=== PATIENT | female | born 1945 | race Caucasian/White ===

== ENCOUNTER → 2017-04-29 | Outpatient (CLI) | payer MEDICARE ==
--- NOTE | 2017-04-29 13:29 | KCIC ---
MRI Lumbar Spine without contrast History: Low back pain, lifting injury 2 weeks ago, right leg numbness Technique: Multiplanar, multi sequential noncontrast MR imaging was performed of the lumbar spine. Contrast: None Comparison: None Findings: Lumbar vertebral body stature is maintained. AP alignment is adequate. Conus terminates at L1-2. There is fvgb-hs-gojjpqob degenerative disc disease at L2-3, minimally at L3-4 and L4-5, mild disc desiccation L1-2 and L5-S1. 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 There is mild lumbar levoscoliosis. There is no significant marrow edema. There is cholelithiasis. Small T2 hyperintense foci of the visualized bilateral kidneys are most likely cysts. L1-L2: Spinal canal and neural foramina are adequate. L2-L3: There is broad posterior bulge. There is mild indentation upon the ventral thecal sac without significant spinal stenosis. Neural foramina are adequate. L3-L4: There is mild facet hypertrophic change. There is anterior annular tear. Spinal canal is overall adequate. Neural foramina are adequate. L4-L5: There is broad posterior bulge, superimposed protrusion eccentric to the inferior left neural foramen and proximal left extraforaminal region. There is moderate to severe narrowing of the left neural foramen, contact undersurface exiting left L4 nerve root in the neural foramen and proximal extraforaminal region. There is mild inferior narrowing of the right neural foramen. There is mild narrowing of the far left lateral recess. There is mild buckling of the ligamentum flavum. L5-S1: There is moderate facet hypertrophic change. Spinal canal and neural foramina are adequate. Impression: 1. There is no significant lumbar spinal stenosis, mild narrowing of the far left lateral recess at L4-5 by bulge/protrusion. 2. There is moderate to severe narrowing of the left L4-5 neural foramen in part by protrusion, contact undersurface exiting left L4 nerve root in the neural foramen and proximal extraforaminal region. There is mild narrowing of the inferior right L4-5 neural foramen. 3. There is degenerative disc disease greatest at L2-3. 4. There is cholelithiasis. Electronically signed by: Bravo Hennessy MD (04/29/2017 1:26 PM) [facility]
== END | disposition home or self-care (01) ==
LOC: KCIC MRI 12:05
PROVIDERS: ATTEND Nurse Practitioner Adult Health
DX: M51.26 Other intervertebral disc displacement, lumbar region (principal); K80.20 Calculus of gallbladder without cholecystitis without obstruction
CPT/HCPCS: 72148

== ENCOUNTER 2018-03-31 13:23 | Inpatient (IN) | payer MEDICARE ==
[~2018-03-31] VITALS: Ht 172.7 cm; Wt 80.5 kg
[2018-03-31] VITALS (7 sets, daily range): BP systolic 156–234; BP diastolic 50–82
[2018-03-31] MEDS ORDERED: hydrALAZINE 20 MG/ML VIAL. IVP ONE (16:15)
[2018-03-31] MEDS: LISINOPRIL 20 MG TABLET PO SCH (16:30)
--- NOTE | 2018-03-31 16:42 | PDOC2 ---
JAYANT SLAUGHTER SPECIFICATION MANAGER 03/31/18 1641: CARDIAC CONSULT DATE OF CONSULT Date of Consult DATE: 03/31/18 TIME: 16:13 REASON FOR CONSULT Reason for Consult: Bradycardia REFERRING PHYSICIAN Referring Physician: Darren SOURCE Source: Chart review, Patient HISTORY OF PRESENT ILLNESS HISTORY OF PRESENT ILLNESS This is a pleasant 72 yo female admitted for complains of SOA and bradycardia. reports hta in the last several months she has been having intermittent HAs but no associated visual or auditory disturbances nor frequent dizziness or passing out. No recent falls or injury. In the last 3 weeks she has been having MUNGUIA and progressed to just going to the bathroom with SOA. In the last week she also has been having chest heaviness that is nonradiating and no nausea or diaphoresis nor sensation of palpitations. In the last 3 days she has noticed increasing leg swelling. She only takes advil PM. Denies any CAD, VTE, arrhythmias, HTN, HLP, DM2. She went to Dr. Bautista office, her PCP per her daughters convincing and was told to go to the hospital where she was confirmed with HR in the 30s with high BP. She was then transferred to [facility] for further treatment and evaluation. PAST MEDICAL HISTORY Hepatobiliary: Cholelithiasis Musculoskeletal: Osteoarthritis, Other (lumbar stenosis) PAST SURGICAL HISTORY Past Surgical History: No pertinent history FAMILY HISTORY Family History: Other (cerebral hemorrhage father in his 40s. ) SOCIAL HISTORY Smoke: 1 pack per day (>50 yrs) ALCOHOL: none Drugs: None Lives: with Family (daughter) ALLERGIES ALLERGIES: Coded Allergies: No Known Drug Allergies (Unverified , 03/31/18) ROS Review of System 14 point ROS evaluated with pertinent positives noted per HPI PHYSICAL EXAM General: Alert, Oriented X3, Cooperative, No acute distress HEENT: Atraumatic, Mucous membr. moist/pink Lungs: Other (basilar crackles) Heart: Regular rate (SB40s), Normal S1, Normal S2, Other (diffuse systolic murmur loudest to LLS border) Abdomen: Soft, Other (truncal obesity) Extremities: No cyanosis, Other (2+ bilateral LE pitting edema) Skin: No breakdown, No significant lesion Neuro: Normal speech, Sensation intact Psych/Mental Status: Mental status NL, Mood NL MUSCULOSKELETAL: Osteoarthritic changes both hands IMAGES IMAGES Impression: MRI 1. There is no significant lumbar spinal stenosis, mild narrowing of the far left lateral recess at L4-5 by bulge/protrusion. 2. There is moderate to severe narrowing of the left L4-5 neural foramen in part by protrusion, contact undersurface exiting left L4 nerve root in the neural foramen and proximal extraforaminal region. There is mild narrowing of the inferior right L4-5 neural foramen. 3. There is degenerative disc disease greatest at L2-3. 4. There is cholelithiasis. Electronically signed by: Noel Madden MD (04/29/2017 1:26 PM) [id number] DICTATED and SIGNED BY: NOEL MADDEN MD DATE: 04/29/17 1320 ASSESSMENT/PLAN ASSESSMENT/PLAN 1. Asymptomatic SB: Lowest in 30s.NO pauses nor presyncopal/syncopal events prehospital. No meds noted that would induce SB. 2. Accelerated HTN: likely chronic and possibly induced by bradycardia 3. Mild acute CHF with possible diastolic dysfunction 4. Likely COPD with 50 pk yr : per PCP 5. Leg swelling/MUNGUIA: positive DDIMER. 6. HAs: possibly from HTN. nevertheless further imaging needed with father of cerebral hemorrhage at 48 7. CP: possibly from HTN. initial trop nml. EKG SR without acute changes. Poor R wave progression. Recommendations 1. Pacer pads in place and on standby 2. Hydralazine IV x1. Start on lisinopril and hydralazine PO. ASA once head CT is noted. 3. Trend troponin, Mg, UA, TSH. TTE, lipid panel. 4. CTA chest 5. Will consider for ischemic workup pending clinical course. 6. Smoking cessation MARIANNE GUZMAN MD 04/01/18 1131: CARDIAC CONSULT ASSESSMENT/PLAN ASSESSMENT/PLAN Patient seen and examined 04/01/18. Agree with LOAD TESTER's assessment and plan. Severe sinus bradycardia most probably secondary to sick sinus syndrome. She is not on any rate lowering medications. Monitor telemetry closely for pauses and consider permanent pacemaker implantation if heart rate does not improve Titrate oral antihypertensives for better control of accelerated hypertension Mild acute on chronic diastolic heart failure probably precipitated by uncontrolled hypertension Check 2-D echo to assess LV systolic function Slight troponin elevation probably demand ischemia We will consider Lexiscan nuclear stress test to rule out ischemia Thank you for your consultation JAYANT SLAUGHTER APRN Mar 31, 2018 16:41 MARIANNE GUZMAN MD Apr 01, 2018 11:31
[2018-03-31] MEDS ORDERED: CONTRAST GIVEN. MC PRN (16:45)
[2018-03-31] MEDS ORDERED: IOHEXOL 300 MG/ML 100ML VIAL. IV ONE (16:45)
[2018-03-31] MEDS ORDERED: ONDANSETRON PF 4 MG/2 ML VIAL. IV ONE (17:00)
--- NOTE | 2018-03-31 17:02 | RAD ---
Examination: CT angiography chest HISTORY: History of dyspnea COMPARISON: None available TECHNIQUE: Axial CT angiographic images of chest were performed with IV contrast. Coronal and sagittal 3-D MIP reformats are performed Exposure: One or more of the following individualized dose reduction techniques were utilized for this examination: 1. Automated exposure control 2. Adjustment of the mA and/or kV according to patient size 3. Use of iterative reconstruction technique FINDINGS: Examination is very limited due to significant motion artifact. Mild cardiomegaly. Caliber of the aorta grossly appears unremarkable. There is no evidence of filling defect identified in the main pulmonary arterial trunk and right and left main pulmonary arteries. The evaluation of the distal lobar, segmental branches of the pulmonary arteries is limited on this examination due to significant motion artifact. Small right pleural effusion identified. Mild right lung base airspace opacities likely atelectasis or infiltrates. There is a 6 mm nodule identified in the right upper lobe of the lung. Small focus of linear airspace opacity identified in the right upper lobe of the lung abutting the fissure likely atelectasis or infiltrate. The visualized liver, spleen, grossly appears unremarkable Mild degenerative changes thoracic spine. IMPRESSION: 1. No evidence of central pulmonary embolism.The evaluation the distal lobar, segmental branches of the pulmonary arteries is limited due to significant motion artifact. 2. Mild right lung base and right upper lobe airspace opacities likely atelectasis or infiltrates. Small right pleural effusion. 3. 6 mm nodule identified in the right upper lobe of the lung. Follow-up per Fleischner Society guidelines with a follow-up CT in 6-12 months. Electronically signed by: Jovanni Morrison MD (03/31/2018 4:59 PM) [id number]
--- NOTE | 2018-03-31 17:02 | RAD ---
CT HEAD WO CONTRAST Clinical indications: SEVERE HEADACHE COMPARISON: None available. Technique: Noncontrast axial cross sectional scanning of the head was performed. PQRS compliance Statement One or more of the following individualized dose reduction techniques were utilized for this study: 1. Automated exposure control 2. Adjustment of the mA and/or kV according to patient size 3. Use of iterative reconstruction technique Findings: No acute intracranial hemorrhage or midline shift or mass-effect or hydrocephalus or extra-axial fluid collection is seen. No focal hypodense area or sulci effacement is seen to indicate an acute infarct or edema radiographically. No skull fracture or pneumocephalus is seen. No opacification of the mastoid sinuses or the paranasal sinuses is seen. The maxillary sinuses are not completely seen in this study. Impression: No acute intracranial abnormality is seen. Electronically signed by: Edwar Zurita MD (03/31/2018 4:59 PM) [facility]
[2018-03-31 18:02] LABS: BILIRUBIN,URINE NEGATIVE (NEG); CLARITY,URINE CLEAR; COLOR,URINE YELLOW; NITRITE,URINE NEGATIVE (NEG); PROTEIN,URINE 30 mg/dL (NEG-TRACE)
[2018-03-31 18:27] LABS: BACTERIA,URINE FEW /HPF (0-FEW); RBC,URINE 0 /HPF (0-2); SQUAMOUS EPITHELIAL CELL,UR FEW /LPF; WBC,URINE OCC /HPF (0-4)
[2018-03-31 19:15] LABS: CHOLESTEROL/HDL RATIO 4.4; MAGNESIUM 1.9 mg/dL (1.8-2.4)
[2018-04-01] VITALS (7 sets, daily range): BP systolic 125–195; BP diastolic 53–67
[2018-04-01] MEDS ORDERED: IBUPROFEN 200 MG TABLET. PO PRN
[2018-04-01] MEDS: IBUPROFEN 600 MG TABLET. PO PRN ×3 (00:08→21:11)
--- NOTE | 2018-04-01 06:54 | RAD ---
CLINICAL HISTORY: BILATERAL LOWER EXTREMITY EDEMA. COMPARISON: None available. TECHNIQUE: Ultrasound evaluation of the both legs was performed from the groin to the upper calf with mac scale, spectral and color doppler evaluation. FINDINGS: Technical limitations due to to patient motion. The common femoral vein, and femoral vein, including the saphenous-femoral junction are normal in appearance. Color and spectral Doppler evaluation demonstrates normal spontaneous flow, augmentation and phasicity. The popliteal vein and visualized calf veins also demonstrate normal compressibility and flow. IMPRESSION: No evidence for bilateral lower extremity DVT Electronically signed by: Todd Dacosta MD (04/01/2018 6:50 AM) [facility] [id number]
[2018-04-01] MEDS: LISINOPRIL 20 MG TABLET PO SCH (07:46)
[2018-04-01] MEDS: ASPIRIN ENTERIC COATED 81 MG TABLET.DR. PO SCH (07:53)
--- NOTE | 2018-04-01 07:53 | EKG ---
[facility] [address] [place] [address] Test Date: 2018-04-01 Test Time: 07:45:12 Pat Name: DANY ROD Department: Room: 205 1 Gender: F Rayon Winder: : 1945 Requested By: JAYANT SLAUGHTER Order Number: [id number] Reading MD: Chaparro Arriola MD Measurements Intervals [place] Rate: 38 P: 28 NM: 210 QRS: 26 QRSD: 98 T: 31 QT: 522 QTc: 418 Interpretive Statements SINUS RHYTHM WITH 2:1 AV BLOCK Electronically Signed On 04-02-2018 10:42:40 CDT by Chaparro Arriola MD
[2018-04-01 08:19] LABS: HEMATOCRIT 38.1 % (36.0-47.0); HEMOGLOBIN 12.9 g/dL (12.0-15.5); RED BLOOD COUNT 4.23 x10^6/uL (3.50-5.40); RED CELL DISTRIBUTION WIDTH 13.9 % (11.5-14.5); WHITE BLOOD COUNT 8.5 x10^3/uL (4.0-11.0)
[2018-04-01 08:29] LABS: ALBUMIN 3.1 g/dL (3.4-5.0); ALBUMIN/GLOBULIN RATIO 1.1 (1.0-1.7); CALCIUM 9.8 mg/dL (8.5-10.1); CREATININE 0.9 mg/dL (0.6-1.0); GFR 61.5; MAGNESIUM 1.9 mg/dL (1.8-2.4); POTASSIUM 4.2 mmol/L (3.5-5.1); TOTAL BILIRUBIN 0.8 mg/dL (0.2-1.0); TOTAL PROTEIN 5.9 g/dL (6.4-8.2)
--- NOTE | 2018-04-01 09:20 | PDOC ---
JAYANT SLAUGHTER OUTDOOR PURSUITS INSTRUCTOR 04/01/18 0920: CARDIO Progress Notes Date and Time Date of Service 03/31/2018 Time of Evaluation 0900 Subjective Subjective: No Chest Pain, No shortness of breath, No Palpitations Vitals Vitals Vital Signs Date Time Temp Pulse Resp B/P (MAP) Pulse Ox O2 Delivery O2 Flow Rate FiO2 04/01/18 07:51 38 195/67 04/01/18 07:25 16 94 Room Air 04/01/18 03:41 98.4 98.4 03/31/18 18:44 2.0 Weight Weight [ ] Input and Output Intake and Output Intake and Output 04/01/18 07:00 Intake Total 0 ml Output Total 525 ml Balance -525 ml Intake Oral 0 ml Output Urine Total 525 ml Laboratory Labs Laboratory Tests Test 03/31/18 17:15 03/31/18 18:40 04/01/18 01:10 04/01/18 05:45 Urine Collection Type Unknown Urine Color Yellow Urine Clarity Clear Urine pH 6.0 Urine Specific [place] 1.020 Urine Protein 30 mg/dL (NEG-TRACE) Urine Glucose (UA) Negative mg/dL (NEG) Urine Ketones (Stick) Trace mg/dL (NEG) Urine Blood Negative (NEG) Urine Nitrite Negative (NEG) Urine Bilirubin Negative (NEG) Urine Urobilinogen Dipstick 1.0 mg/dL (0.2 mg/dL) Urine Leukocyte Esterase Negative (NEG) Urine RBC 0 /HPF (0-2) Urine WBC Occ /HPF (0-4) Urine Squamous Epithelial Cells Few /LPF Urine Bacteria Few /HPF (0-FEW) Urine Mucus Slight /LPF Magnesium Level 1.9 mg/dL (1.8-2.4) 1.9 mg/dL (1.8-2.4) Troponin I Quantitative 0.021 ng/mL (0.000-0.055) 0.109 ng/mL (0.000-0.055) 0.112 ng/mL (0.000-0.055) Triglycerides Level 83 mg/dL (0-150) Cholesterol Level 184 mg/dL (0-200) LDL Cholesterol, Calculated 125 mg/dL (0-100) VLDL Cholesterol, Calculated 17 mg/dL (0-40) Non-HDL Cholesterol Calculated 142 mg/dL (0-129) HDL Cholesterol 42 mg/dL (40-60) Cholesterol/HDL Ratio 4.4 Thyroid Stimulating Hormone (TSH) 2.060 uIU/mL (0.358-3.74) White Blood Count 8.5 x10^3/uL (4.0-11.0) Red Blood Count 4.23 x10^6/uL (3.50-5.40) Hemoglobin 12.9 g/dL (12.0-15.5) Hematocrit 38.1 % (36.0-47.0) Mean Corpuscular Volume 90 fL (79-100) Mean Corpuscular Hemoglobin 31 pg (25-35) Mean Corpuscular Hemoglobin Concent 34 g/dL (31-37) Red Cell Distribution Width 13.9 % (11.5-14.5) Platelet Count 181 x10^3/uL (140-400) Sodium Level 142 mmol/L (136-145) Potassium Level 4.2 mmol/L (3.5-5.1) Chloride Level 107 mmol/L (98-107) Carbon Dioxide Level 22 mmol/L (21-32) Anion Gap 13 (6-14) Blood Urea Nitrogen 20 mg/dL (7-20) Creatinine 0.9 mg/dL (0.6-1.0) Estimated GFR (Cockcroft-Gault) 61.5 BUN/Creatinine Ratio 22 (6-20) Glucose Level 85 mg/dL (70-99) Calcium Level 9.8 mg/dL (8.5-10.1) Total Bilirubin 0.8 mg/dL (0.2-1.0) Aspartate Amino Transf (AST/SGOT) 16 U/L (15-37) Alanine Aminotransferase (ALT/SGPT) 32 U/L (14-59) Alkaline Phosphatase 86 U/L (46-116) Total Protein 5.9 g/dL (6.4-8.2) Albumin 3.1 g/dL (3.4-5.0) Albumin/Globulin Ratio 1.1 (1.0-1.7) Physical Exam HEENT: Neck Supple W Full Motion Chest: Symmetric LUNGS: Clear to Auscultation Heart: S1S2, RRR (second degree type 2 HR 40s) Extremities: No Calf Tenderness, Other (1-2+ bilateral LE pitting edema) Neurology: alert, oriented, follow commands Assessment Assessment 1. SSS: overnight with second degree type 2 mobitz. 8 sec pause this am. 2. Accelerated HTN: likely chronic and possibly induced by bradycardia 3. Mild acute CHF with possible diastolic dysfunction: compensated 4. Suspect COPD with 50 pk yr : per PCP. CTA negative for PE 5. HAs: likely from HTN, CT head negative. 7. CP: possibly from HTN 8. Mildly elevated troponin: peaked at 0.1 suspect from SSS and HTN. currently CP.free 9. HLP Recommendations 1. Pacer pads in place and on standby PPM today, risks and benefits explained and agreeable to proceed 2. ASA, statin. hydralazine, lisinopril. BMP and Mg this AM. 3. MPI prior to DC. TTE pending. 4. Will reevaluate BP meds post pacer placement 5. Smoking cessation MARIANNE GUZMAN MD 04/01/18 1642: CARDIO Progress Notes Assessment Assessment Patient seen and examined. Agree with COPY CENTER SPECIALIST's assessment and plan. Telemetry with severe bradycardia, complete heart block and 8 second pause noted We will proceed with permanent pacemaker implantation Risks and benefits were explained and she is agreeable JAYANT SLAUGHTER APRN Apr 01, 2018 09:20 MARIANNE GUZMAN MD Apr 01, 2018 16:42
[2018-04-01] MEDS: ONDANSETRON PF 4 MG/2 ML VIAL. IV PRN (11:53)
[2018-04-01] MEDS ORDERED: fentaNYL PF VIAL 100 MCG/2 ML VIAL IM ONE (12:15)
--- NOTE | 2018-04-01 12:42 | HP ---
ADMIT DATE: 03/31/2018 HISTORY OF PRESENT ILLNESS: The patient is a 72-year-old female patient who apparently has been complaining of increasing shortness of breath on exertion and swelling of the legs that has been going on for the last few days and over the last 2 days, her daughter said that she was unable to walk from the car to the front door of [facility] also her legs are swollen and therefore, she made an appointment for her to be seen by her primary care physician who admitted her to [facility] where she was noted to be in severe sinus bradycardia and therefore, a decision was made to transfer her to the [facility] to be evaluated by Cardiology with a view of putting a pacemaker. She has episodes of second-degree heart block and also prolonged pauses. PAST MEDICAL HISTORY: Significant for osteoarthritis and lumbar spinal stenosis as well as cholelithiasis. PAST SURGICAL HISTORY: Unremarkable. FAMILY HISTORY: Her father has had cerebral hemorrhage in his 40s. SOCIAL HISTORY: She lives with her daughter. She does not drink alcohol or use drugs, but she smokes a pack a day for more than 50 years. REVIEW OF SYSTEMS: As per history of present illness. ALLERGIES: She has no known drug allergies. She apparently is on no medications. PHYSICAL EXAMINATION: GENERAL: On arrival to [facility], she looked somewhat pale, but no jaundice, cyanosis, or thyromegaly. No jugular venous distension. Mild bilateral limb edema. VITAL SIGNS: Her heart rate was 36. Blood pressure was extremely high 234/82. Her temperature was 98.2, respiratory rate was 18 and oxygen saturation was 93% on room air. HEAD, EYES, EARS, NOSE AND THROAT: Showed normocephalic, atraumatic. NECK: Supple. HEART: Showed normal first and second heart sounds with no gallop, rub or murmur. CHEST: Shows central trachea, equal bilateral expansion, air entry, vesicular sounds. No crepitation or rhonchi. ABDOMEN: Distended, soft, nontender. NEUROLOGIC: She was awake, alert, responding appropriately. All cranial nerves intact. EXTREMITIES: She moves extremities without difficulty. ASSESSMENT AND PLAN: We will consult the Cardiology team and she probably will end up requiring a permanent pacemaker and as her blood pressure was extremely high, she was started on hydralazine as well as lisinopril as needed. TANVI ANDERSON MD DR: MIYA/werner JOB#: [id number] / [id number]
[2018-04-01] MEDS ORDERED: fentaNYL PF VIAL 100 MCG/2 ML VIAL IV ONE (12:45)
[2018-04-01] MEDS ORDERED: BACITRACIN 50,000 UNIT in IV NORMAL SALINE 250ML 250 ML IRR ONE (15:00)
--- NOTE | 2018-04-01 15:24 | CARD ---
MR#: [id number] Date of Study: 04/01/2018 Ordering Physician: JAYANT SLAUGHTER, Referring Physician: TANVI ANDERSON Tech: Wendy Huff [facility] APPROVED REPORT EXAM: Two-dimensional and M-mode echocardiogram with Doppler and color Doppler. Other Information Quality : GoodHR: 39bpm Rhythm : Bradycardia INDICATION Arrhythmia 2D DIMENSIONS RVDd2.4 (2.9-3.5cm)Left Atrium(2D)3.9 (1.6-4.0cm) IVSd0.7 (0.7-1.1cm)Aortic Root(2D)2.8 (2.0-3.7cm) LVDd5.0 (3.9-5.9cm)LVOT Diameter1.7 (1.8-2.4cm) PWd0.9 (0.7-1.1cm)LVDs2.4 (2.5-4.0cm) FS (%) 51.9 %SV98.0 ml M-Mode DIMENSIONS Left Atrium(MM)3.64 (2.5-4.0cm)Aortic Root3.28 (2.2-3.7cm) Aortic Valve AoV Peak Dominic.284.7cm/sAoV VTI61.0cm AO Peak GR.32.4mmHgLVOT Peak Dominic.144.7cm/s AO Mean GR.14mmHgAVA (VMAX)1.20cm2 KD (VTI)1.40cm2 Mitral Valve MV E Rgnjrksw393.0cm/sMV DECEL UNIX506ce MV A Qmknfhqz750.6cm/sE/A Ratio0.9 Pulmonary Valve PV Peak Xtxbxhwc225.0cm/s Tricuspid Valve TR P. Etazxhsy196sm/sRAP QTNYMJIA7fyVc TR Peak Gr.75yxPwXDYK78cxQj LEFT VENTRICLE The left ventricle is normal size. There is mild concentric left ventricular hypertrophy. The left ve ntricle is normal. The Ejection Fraction is 65-70%. There is normal LV segmental wall motion. RIGHT VENTRICLE The right ventricle is normal size. There is normal right ventricular wall thickness. The right ventr icular systolic function is normal. ATRIA The left atrium size is normal. The right atrium size is normal. The interatrial septum is intact wit h no evidence for an atrial septal defect or patent foramen ovale as noted on 2-D or Doppler imaging. AORTIC VALVE The aortic valve is thickened but opens well. The aortic valve is trileaflet. Doppler and Color Flow revealed trace aortic regurgitation. There is no significant aortic valvular stenosis. MITRAL VALVE The mitral valve is thickened but opens well. There is no evidence of mitral valve prolapse. There is no mitral valve stenosis. Doppler and Color-flow revealed mild mitral regurgitation. TRICUSPID VALVE The tricuspid valve is normal in structure and function. Doppler and Color Flow revealed mild tricusp id regurgitation. The PA pressure was estimated at 44 mmHg. There is no tricuspid valve prolapse or v egetation. There is no tricuspid valve stenosis. PULMONIC VALVE The pulmonary valve is normal in structure and function. Doppler and Color Flow revealed no pulmonic valvular regurgitation. There is no pulmonic valvular stenosis. GREAT VESSELS The aortic root is normal in size. The ascending aorta is normal in size. PERICARDIAL EFFUSION There is no evidence of significant pericardial effusion. Critical Notification Critical Value: No <Conclusion> The left ventricle is normal size. The left ventricle is normal. The Ejection Fraction is 65-70%. There is mild concentric left ventricular hypertrophy. There is no significant aortic valvular stenosis. Doppler and Color Flow revealed trace aortic regurgitation. Doppler and Color-flow revealed mild mitral regurgitation. Doppler and Color Flow revealed mild tricuspid regurgitation. The PA pressure was estimated at 44 mmHg. Signed by : Tanner Lim MD Electronically Approved : 04/01/2018 15:23:35
[2018-04-01] MEDS ORDERED: fentaNYL PF VIAL 250 MCG/5 ML VIAL ONE (15:28)
[2018-04-01] MEDS ORDERED: MIDAZOLAM HCL/PF 5 MG/5 ML VIAL. ONE (15:28)
[2018-04-01] MEDS ORDERED: LIDOCAINE 2%/EPI 1:100,000 20 ML VIAL. ONE (15:34)
[2018-04-01] MEDS ORDERED: MIDAZOLAM HCL/PF 5 MG/5 ML VIAL. IV ONE (16:05)
[2018-04-01] MEDS ORDERED: LIDOCAINE 2%/EPI 1:100,000 20 ML VIAL. IJ ONE (16:15)
[2018-04-01] MEDS ORDERED: fentaNYL PF VIAL 250 MCG/5 ML VIAL IV ONE (16:15)
--- NOTE | 2018-04-01 16:37 | CARD ---
MR#: [id number] Date of Study: 04/01/2018 Ordering Physician: JAYANT SLAUGHTER, Referring Physician: TANVI ANDERSON Tech: Lindsey Kennedy RT (R) APPROVED REPORT PROCEDURES Successful implantation of Biotronik dual-chamber permanent pacemaker INDICATIONS Complete heart block and severe symptomatic bradycardia PROCEDURE After explaining the risks, benefits, and alternative options, informed consent was obtained from the patient. The patient was brought to the cardiac catheterization lab and the left chest and shoulder were prepp ed and draped in a sterile manner. 30 mL of 2% lidocaine was infiltrated into the skin and subcutaneous tissues for local anesthesia. An incision was made over the left infraclavicular fossa and using blunt dissection and cautery a pocke t was created. Venous access was obtained in the left subclavian vein and 8 and 6 Salvadorean sheaths inse rted. A Biotronik bipolar active fixation right ventricular lead model Solia, serial #[id number] was advanced under fluoroscopy guidance and the tip was positioned in the right ventricular apex. Subsequently, a Biotronik bipolar active fixation right atrial lead model Solia, serial number [id number] was positi oned in the right atrial appendage under fluoroscopy guidance. The leads were secured into place and attached to a Biotronik dual-chamber permanent pacemaker generator model Eluna 8 DR-T ProMRI, serial #[id number]. This was placed in the pocket that was subsequently closed in 3 layers. Hemostasis was sec ured. At the end of procedure, the right ventricular lead showed a sensing amplitude of 10.7 mV, impedance of 861 ohms and a threshold of 1.2 V. The right atrial lead showed a sensing amplitude of 3.5 mV, imp edance of 522 ohms and a threshold of 1.3 V. Patient tolerated the procedure well. There were no imme diate complications. CONCLUSION Successful implantation of Biotronik dual-chamber permanent pacemaker for complete heart block and se santana symptomatic bradycardia. Signed by : Mervin Peterson, Electronically Approved : 04/01/2018 16:36:38
[2018-04-01] MEDS ORDERED: NO ANTICOAGULANT THERAPY. MC PRN (16:45)
--- NOTE | 2018-04-01 17:24 | RAD ---
Exam: AP portable chest History: Inpatient. Post pacemaker placement. Comparison: CT angiogram chest March 31, 2018. Findings: The heart and mediastinal structures are within normal limits for size. There has been placement of dual-lead pacemaker by left subclavian approach with one lead projecting at right atrium and additional lead projecting at right ventricle. No pneumothorax or large pleural effusion is identified. There is accentuation of interstitial markings, suggesting mild interstitial edema. Focal density is seen at the right lung base. Impression: 1. Interval placement of dual-lead pacemaker by left subclavian approach. No postprocedure pneumothorax identified. 2. Mild interstitial edema. 3. Focal density involving the right lung base, could be atelectasis versus scarring versus developing airspace disease. Electronically signed by: Srini Arcos MD (04/01/2018 5:20 PM) [facility]
[2018-04-01] MEDS: ATORVASTATIN CALCIUM 20 MG TABLET PO SCH (21:10)
--- NOTE | 2018-04-01 22:18 | PN ---
DATE: 04/01/2018 SUBJECTIVE: The patient is resting, slightly propped up in bed, in no apparent distress. On questioning her, she is complaining of neck pain, headache, denied any chest pain or shortness of breath. Her swelling of the legs is much improved. She is scheduled for permanent pacemaker as she went into long pauses of almost 8 seconds. PHYSICAL EXAMINATION: GENERAL: When I examined her this morning, she looked well and was clearly in no apparent respiratory distress. VITAL SIGNS: Her heart rate was 38, blood pressure was 195/67, temperature was 98.4, respiratory rate was 16 and oxygen saturation was 94%. HEAD, EYES, EARS, NOSE AND THROAT: Showed normocephalic, atraumatic. NECK: Supple. HEART: Showed normal first and second heart sounds with no gallop, rub or murmur. CHEST: Clear to auscultation. No crepitation or rhonchi. ABDOMEN: Distended, soft, nontender. NEUROLOGIC: She was awake, alert, responding appropriately. Cranial nerves intact. She moves extremities without difficulty. LABORATORY DATA: Showed a white cell count of 8500, hemoglobin was 12.9, hematocrit 38, MCV 90 and platelet count of 181,000. Her chemistry showed serum sodium of 142, potassium 4.2, chloride 107, bicarbonate 22, anion gap of 13, BUN 20, creatinine 0.9, estimated GFR was 61 mL per minute. Her glucose was 85, calcium was 9.8, magnesium was 1.9. Total bilirubin, AST, ALT, alkaline phosphatase were normal. Her total protein was 5.9, albumin 3.1. TSH was normal at 2.06. Serum triglycerides were 83. Cholesterol 184, LDL was 125, VLDL was 17, HDL was 42 and the ratio was 4.4. ASSESSMENT AND PLAN: In summary, this is a 72-year-old female patient with sick sinus syndrome with episodes of second degree type 2 Mobitz, 8-second pause. This morning, her accelerated hypertension could be due to bradycardia, mild acute congestive heart failure, possibly diastolic dysfunction, probably chronic obstructive pulmonary disease as she has been a smoker for 50 years, headaches, likely because of hypertension. Her CT scan of the head was negative and mildly elevated troponin. The patient was started on aspirin and statin, hydralazine and lisinopril, and she is scheduled to have her permanent pacemaker placed today. TANVI ANDERSON MD DR: Malaika JOB#: [id number] / [id number]
[2018-04-01] MEDS ORDERED: IV NORMAL SALINE 1000ML BAG 1,000 ML IV ONE (23:00)
[2018-04-02 03:21] VITALS: BP 139/59
[2018-04-02 07:00] VITALS: BP 162/82
[2018-04-02] MEDS ORDERED: FUROSEMIDE 40 MG/4 ML VIAL. IVP ONE (08:00)
[2018-04-02] MEDS: LISINOPRIL 20 MG TABLET PO SCH (08:15)
[2018-04-02] MEDS: ASPIRIN ENTERIC COATED 81 MG TABLET.DR. PO SCH (08:16)
[2018-04-02] MEDS ORDERED: REGADENOSON 0.4 MG/5 ML DISP.SYRIN. IV ONE (09:00)
--- NOTE | 2018-04-02 09:16 | PDOC ---
JAYANT SLAUGHTER OFFICE AGENT 04/02/18 0916: CARDIO Progress Notes Date and Time Date of Service 04/02/2018 Time of Evaluation 0900 Subjective Subjective: No Chest Pain, No shortness of breath, No Palpitations Vitals Vitals Vital Signs Date Time Temp Pulse Resp B/P (MAP) Pulse Ox O2 Delivery O2 Flow Rate FiO2 04/02/18 08:17 60 154/78 04/02/18 07:00 98.6 20 90 Room Air 98.6 04/01/18 20:00 2.0 Weight Weight [ ] Input and Output Intake and Output Intake and Output 04/02/18 07:00 Intake Total 320 ml Output Total 600 ml Balance -280 ml Intake Oral 320 ml Output Urine Total 600 ml Laboratory Labs Laboratory Tests Test 04/01/18 14:10 Prothrombin Time 14.0 SEC (11.7-14.0) Prothromb Time International Ratio 1.1 (0.8-1.1) Physical Exam HEENT: Neck Supple W Full Motion Chest: Symmetric LUNGS: Clear to Auscultation Heart: S1S2, RRR (paced) Abdomen: Soft N/T Extremities: No Calf Tenderness, Other (1-2+ bilateral LE pitting edema) Neurology: alert, oriented, follow commands Assessment Assessment 1. SSS: Second degree type 2 mobitz. 8 sec pause this am. S/P PPM. noted with RA lead displacement 2. Accelerated HTN: improved 3. Mild acute CHF with possible diastolic dysfunction 4. Suspect COPD with 50 pk yr : per PCP. CTA negative for PE 5. HAs: likely from HTN, CT head negative. 7. CP: possibly from HTN 8. Mildly elevated troponin: peaked at 0.1 suspect from SSS and HTN. remains CP.free 9. HLP Recommendations 1. Lead revision today. Discussed with pt. 2. ASA, statin. hydralazine, lisinopril. Lasix x1 3. change MPI as an outpt. 4. Will reevaluate BP meds post lead revision 5. Smoking cessation MARIANNE GUZMAN MD 04/03/18 1013: CARDIO Progress Notes Assessment Assessment Patient seen and examined 04/02/18. Agree with SHIP LOADER's assessment and plan. Chest x-ray without any pneumothorax Device interrogation showed right atrial lead dislodgment Plan for lead revision today. JAYANT SLAUGHTER APRN Apr 02, 2018 09:16 MARIANNE GUZMAN MD Apr 03, 2018 10:13
--- NOTE | 2018-04-02 09:43 | RAD ---
Portable chest, 04/02/2018: HISTORY: Post pacemaker insertion Comparison is made to yesterday's study. A left-sided transvenous pacemaker remains in place. The tips of both leads now project over the inferior aspect of the right ventricle. There are multiple EKG leads also project over the heart. The heart size is unchanged. The pulmonary vascularity is within normal limits. There is minimal right basilar atelectasis. There is no evidence of pneumothorax or significant pleural fluid. IMPRESSION: 1. The position of the right atrial lead has changed with the tips of both leads now projecting over the inferior aspect of the right ventricle. 2. Minimal residual right basilar atelectasis. Electronically signed by: Liban Valdez MD (04/02/2018 9:40 AM) [facility]
[2018-04-02] MEDS ORDERED: BACITRACIN 50,000 UNIT in IV NORMAL SALINE 250ML 250 ML IRR ONE (10:45)
[2018-04-02] MEDS ORDERED: fentaNYL PF VIAL 100 MCG/2 ML VIAL ONE (10:49)
[2018-04-02] MEDS ORDERED: MIDAZOLAM HCL/PF 2 MG/2 ML VIAL. ONE (10:50)
[2018-04-02] MEDS ORDERED: LIDOCAINE 2%/EPI 1:100,000 20 ML VIAL. ONE (10:51)
[2018-04-02] MEDS ORDERED: MIDAZOLAM HCL/PF 2 MG/2 ML VIAL. IV ONE (12:00)
[2018-04-02] MEDS ORDERED: LIDOCAINE 2%/EPI 1:100,000 20 ML VIAL. IJ ONE (12:00)
[2018-04-02] MEDS ORDERED: fentaNYL PF VIAL 100 MCG/2 ML VIAL IV ONE (12:00)
[2018-04-02 12:12] VITALS: BP 138/78
[2018-04-02 15:00] VITALS: BP 153/73
[2018-04-02] MEDS: IBUPROFEN 600 MG TABLET. PO PRN (17:56)
[2018-04-02 19:38] VITALS: BP 146/70
[2018-04-02] MEDS: ATORVASTATIN CALCIUM 20 MG TABLET PO SCH (21:43)
[2018-04-02 22:20] VITALS: BP 136/88
[2018-04-03] MEDS: IBUPROFEN 600 MG TABLET. PO PRN (01:08)
[2018-04-03 04:01] VITALS: BP 156/88
[2018-04-03 04:11] LABS: HEMATOCRIT 39.7 % (36.0-47.0); HEMOGLOBIN 13.7 g/dL (12.0-15.5); RED BLOOD COUNT 4.42 x10^6/uL (3.50-5.40); RED CELL DISTRIBUTION WIDTH 14.2 % (11.5-14.5); WHITE BLOOD COUNT 9.4 x10^3/uL (4.0-11.0)
[2018-04-03 05:04] LABS: ALBUMIN 2.8 g/dL (3.4-5.0); ALBUMIN/GLOBULIN RATIO 0.8 (1.0-1.7); CALCIUM 9.3 mg/dL (8.5-10.1); CREATININE 0.8 mg/dL (0.6-1.0); GFR 70.5; MAGNESIUM 1.9 mg/dL (1.8-2.4); POTASSIUM 3.3 mmol/L (3.5-5.1); TOTAL BILIRUBIN 0.7 mg/dL (0.2-1.0); TOTAL PROTEIN 6.1 g/dL (6.4-8.2)
--- NOTE | 2018-04-03 06:14 | PN ---
DATE: 04/02/2018 SUBJECTIVE: The patient is resting slightly propped up in bed, no apparent distress. She has had her dual chamber pacemaker placed yesterday successfully. Unfortunately, the lead displacement she has had at the atrial lead placed to the right ventricle and she underwent lead revision. This morning, her MPI that planned was canceled, to be done as an outpatient. PHYSICAL EXAMINATION: GENERAL: When I examined her today, she looked well and was clearly in no apparent respiratory distress. No pallor, jaundice, cyanosis, or thyromegaly. No jugular venous distension. No limb edema. VITAL SIGNS: Her heart rate was 80, blood pressure was 154/78, temperature was 98.6, respiratory rate was 15 and oxygen saturation was 96% on 2 liters of oxygen. HEAD, EYES, EARS, NOSE AND THROAT: Showed normocephalic, atraumatic. NECK: Supple. HEART: Showed normal first and second heart sounds. No gallop, rub or murmur. CHEST: Clear to auscultation. No crepitation or rhonchi. ABDOMEN: Distended, soft, nontender. NEUROLOGIC: She is awake, alert, responding appropriately. All cranial nerves intact. She moves extremities without difficulty. Her intake and output are incompletely recorded. LABORATORY DATA: As of yesterday showed a white cell count of 8500; hemoglobin 13; hematocrit 38; MCV 90 and platelet count of 181,000. Her serum sodium was 142, potassium 4.2, chloride 107, bicarbonate 22, anion gap of 13, BUN 20, creatinine 0.9, estimated GFR was 61 mL per minute. Her glucose was 85, calcium was 9.8, magnesium was 1.9. Total bilirubin, AST, ALT, alkaline phosphatase were normal. Total protein was 5.9, albumin 3.1. ASSESSMENT: 1. Sick sinus syndrome with episodes of second-degree Mobitz type 2 and 8-second pause, status post permanent pacemaker placement. 2. Displaced right atrial lead, status post revision. 3. Hypertension, much improved. 4. Chronic obstructive pulmonary disease, questionable diastolic congestive heart failure as her echocardiogram showed that her left ventricular size is normal with a normal ejection fraction of 65%-70%, she has mild concentric left ventricular hypertrophy; however, no significant aortic valvular stenosis and trace aortic regurgitation, mild mitral regurgitation, and mild tricuspid regurgitation. Her pulmonary artery pressure was 44 mmHg. PLAN: To obviously continue with her current medications and she apparently scheduled for chest x-ray to confirm the placement and if she is stable, can be discharged home tomorrow. TANVI ANDERSON MD DR: MIYA/werner JOB#: [id number] / [id number]
[2018-04-03] MEDS: ONDANSETRON PF 4 MG/2 ML VIAL. IV PRN (07:13)
[2018-04-03 07:48] VITALS: BP 170/78
[2018-04-03] MEDS ORDERED: POTASSIUM CHLORIDE 20 MEQ TABLET.ER. PO ONE (08:00)
[2018-04-03] MEDS: ASPIRIN ENTERIC COATED 81 MG TABLET.DR. PO SCH (08:12)
[2018-04-03] MEDS: LISINOPRIL 20 MG TABLET PO SCH (08:16)
[2018-04-03] MEDS ORDERED: ASPI-630 PO (09:53)
[2018-04-03] MEDS ORDERED: LISI-334 PO (09:53)
[2018-04-03] MEDS ORDERED: ATOR10TA60 PO (09:53)
--- NOTE | 2018-04-03 10:33 | PDOC ---
JAYANT SLAUGHTER SECURITY INCIDENT RESPONSE ENGINEER 04/03/18 1033: CARDIO Progress Notes Date and Time Date of Service 04/03/2018 Time of Evaluation 1020 Subjective Subjective: No Chest Pain, No shortness of breath, No Palpitations Vitals Vitals Vital Signs Date Time Temp Pulse Resp B/P (MAP) Pulse Ox O2 Delivery O2 Flow Rate FiO2 04/03/18 08:16 73 170/78 04/03/18 08:00 Room Air 04/03/18 07:48 97.6 18 95 97.6 04/02/18 12:12 2.0 Weight Weight [ ] Input and Output Intake and Output Intake and Output 04/03/18 07:00 Intake Total 300 ml Output Total 900 ml Balance -600 ml Intake Oral 300 ml Output Urine Total 900 ml # Voids 10 Laboratory Labs Laboratory Tests Test 04/03/18 03:30 White Blood Count 9.4 x10^3/uL (4.0-11.0) Red Blood Count 4.42 x10^6/uL (3.50-5.40) Hemoglobin 13.7 g/dL (12.0-15.5) Hematocrit 39.7 % (36.0-47.0) Mean Corpuscular Volume 90 fL (79-100) Mean Corpuscular Hemoglobin 31 pg (25-35) Mean Corpuscular Hemoglobin Concent 34 g/dL (31-37) Red Cell Distribution Width 14.2 % (11.5-14.5) Platelet Count 183 x10^3/uL (140-400) Sodium Level 144 mmol/L (136-145) Potassium Level 3.3 mmol/L (3.5-5.1) Chloride Level 107 mmol/L (98-107) Carbon Dioxide Level 25 mmol/L (21-32) Anion Gap 12 (6-14) Blood Urea Nitrogen 23 mg/dL (7-20) Creatinine 0.8 mg/dL (0.6-1.0) Estimated GFR (Cockcroft-Gault) 70.5 BUN/Creatinine Ratio 29 (6-20) Glucose Level 95 mg/dL (70-99) Calcium Level 9.3 mg/dL (8.5-10.1) Magnesium Level 1.9 mg/dL (1.8-2.4) Total Bilirubin 0.7 mg/dL (0.2-1.0) Aspartate Amino Transf (AST/SGOT) 14 U/L (15-37) Alanine Aminotransferase (ALT/SGPT) 18 U/L (14-59) Alkaline Phosphatase 83 U/L (46-116) Total Protein 6.1 g/dL (6.4-8.2) Albumin 2.8 g/dL (3.4-5.0) Albumin/Globulin Ratio 0.8 (1.0-1.7) Physical Exam HEENT: Neck Supple W Full Motion Chest: Symmetric LUNGS: Clear to Auscultation Heart: S1S2, RRR (paced) Abdomen: Soft N/T Extremities: No Calf Tenderness, Other (1+ bilateral LE pitting edema) Neurology: alert, oriented, follow commands Other Exams left chest incision well approximated with steristrips no oozing. mild erythema inferiorly possibly irriation. MARLEEN. LFA with edema due to IVF infiltration unrelated to PPM. Neurovascular status intact. sling in place. Assessment Assessment 1. SSS: with 8 sec pause. S/P PPM then RA lead revision. No complications tolerated procedure well. 2. Accelerated HTN: labile 3. acute diastolic CHF: due to arrhythmia and HTN. EF and WM nml. 4. Suspect COPD with 50 pk yr : per PCP. 5. CP: possibly from HTN and arrhythmia 6. Mildly elevated troponin: peaked at 0.1 suspect from SSS and HTN. remains CP.free 7. HLP Recommendations 1. ASA, statin. lisinopril, amlodipine. Replace K. 3. Repeat interrogation revealed normal functioning device. MPI as an outpt. 3. 2 week wound check and BP check. Encouraged home BP monitoring. 4. Smoking cessation MARIANNE GUZMAN MD 04/03/18 1548: CARDIO Progress Notes Assessment Assessment Patient seen and examined. Agree with COURT ASSISTANT's assessment and plan. s/p right atrial lead revision yesterday with repeat interrogation today showing normal function. Okay for discharge from cardiac standpoint. JAYANT SLAUGHTER APRN Apr 03, 2018 10:33 MARIANNE GUZMAN MD Apr 03, 2018 15:48
[2018-04-03] MEDS ORDERED: AMLO10TA6 PO ×2 (10:36→10:37)
[2018-04-03] MEDS ORDERED: amLODIPine BESYLATE 10 MG TABLET PO SCH (11:00)
[2018-04-03] MEDS ORDERED: LISINOPRIL 20 MG TABLET PO SCH (11:00)
[2018-04-03 11:07] VITALS: BP 141/61
[2018-04-03] MEDS: ATORVASTATIN CALCIUM 20 MG TABLET PO SCH (11:19)
--- NOTE | 2018-04-03 18:53 | DS ---
DATE OF DISCHARGE: 04/03/2018 HISTORY OF PRESENT ILLNESS: The patient is a 72-year-old female patient who was admitted with increasing shortness of breath on exertion, swelling of the legs that has been going on for the last few days. Her daughter said that she was unable to walk from the car to the front door of [facility] and also, her legs have swollen and therefore, she made an appointment for her to be seen by her primary care physician who admitted here to [facility] as she was noted to have severe sinus bradycardia and from there, she was transferred to [facility], was evaluated by the Cardiology team. She was found to have a Mobitz type 2 second degree heart block and also prolonged pauses and she underwent placement of a permanent pacemaker successfully; however, the atrial lead was displaced and was revised yesterday. The pacemaker was interrogated this morning and apparently was functioning well and she has had an echocardiogram, which showed that her left ventricle is normal in size and left ventricular systolic function is normal with ejection fraction of 65%-70%. She has mild concentric left ventricular hypertrophy. No significant aortic valvular stenosis, trace aortic regurgitation and mild mitral regurgitation and mild tricuspid regurgitation. Her pulmonary artery pressure was estimated at 44 mm per hour. Her blood pressure continued to be somewhat high despite treatment with hydralazine and lisinopril and the Cardiology team. We will adjust that and she will be discharged home to have a nuclear stress test as an outpatient. PHYSICAL EXAMINATION: GENERAL: When I saw her today, she looked well and was clearly in no apparent respiratory distress. No pallor, jaundice, cyanosis, or thyromegaly. No jugular venous distension. No limb edema. VITAL SIGNS: Her heart rate was 72, blood pressure was 170/78, temperature was 97.6, respiratory rate was 18 and oxygen saturation was 95% on room air. HEAD, EYES, EARS, NOSE AND THROAT: Showed normocephalic, atraumatic. NECK: Supple. HEART: Showed normal first and second heart sounds with no gallop, rub or murmur. CHEST: Clear to auscultation. No crepitation or rhonchi. ABDOMEN: Distended, soft, nontender. NEUROLOGIC: She is awake, alert, responding appropriately. Cranial nerves intact. EXTREMITIES: She moves extremities without difficulty. She ambulates without assistance or assistive devices. LABORATORY WORK: As of this morning showed a white cell count 9400, hemoglobin 14, hematocrit 40, MCV 90 and platelet count 283,000. Her chemistry showed a serum sodium 144, potassium 3.3, chloride 107, bicarbonate 25, anion gap of 12, BUN 23, creatinine 0.8, estimated GFR was 70 mL per minute. Her glucose was 95, calcium was 9.3, magnesium was 1.9. Total bilirubin, AST, ALT, alkaline phosphatase were normal. Her total protein was 6.1, albumin was 2.8. DISCHARGE MEDICATIONS: The patient will be discharged home to continue on atorvastatin 20 mg at bedtime, aspirin 81 mg once a day, hydralazine 50 mg 3 times a day and lisinopril 20 mg once a day. FINAL DISCHARGE DIAGNOSES: Sick sinus syndrome and second degree Mobitz type 2, on 8-second pause; status post permanent pacemaker placement; accelerated hypertension, improving; mild acute congestive heart failure, likely due to systolic dysfunction, improving; chronic obstructive pulmonary disease; mildly elevated troponin secondary to hypertension and hyperlipidemia. TANVI ANDERSON MD DR: MIYA/werner JOB#: [id number] / [id number]
[2018-04-04] MEDS ORDERED: LISINOPRIL 20 MG TABLET PO SCH (09:00)
== END 2018-04-03 13:33 | disposition home or self-care (01) | DRG 242 ==
LOC: 2 NORTH 15:54
PROVIDERS: ADMIT Internal Medicine; ATTEND Internal Medicine
PROC: 0JH606Z Insertion of Pacemaker, Dual Chamber into Chest Subcutaneous Tissue and Fascia, Open Approach (ICD-10-PCS; principal; 2018-04-01)
PROC: 02HK3JZ Insertion of Pacemaker Lead into Right Ventricle, Percutaneous Approach (ICD-10-PCS; 2018-04-01)
PROC: 02H63JZ Insertion of Pacemaker Lead into Right Atrium, Percutaneous Approach (ICD-10-PCS; 2018-04-01)
PROC: 02WA3MZ Revision of Cardiac Lead in Heart, Percutaneous Approach (ICD-10-PCS; 2018-04-02)
PROC: 4B02XSZ Measurement of Cardiac Pacemaker, External Approach (ICD-10-PCS; 2018-04-03)
DX: I49.5 Sick sinus syndrome (principal); I50.43 Acute on chronic combined systolic (congestive) and diastolic (congestive) heart failure; I44.2 Atrioventricular block, complete; T82.120A Displacement of cardiac electrode, initial encounter; M19.90 Unspecified osteoarthritis, unspecified site; E78.5 Hyperlipidemia, unspecified; F17.210 Nicotine dependence, cigarettes, uncomplicated; I11.0 Hypertensive heart disease with heart failure; M48.061 Spinal stenosis, lumbar region without neurogenic claudication; J44.9 Chronic obstructive pulmonary disease, unspecified; Y92.238 Other place in hospital as the place of occurrence of the external cause; Y71.2 Prosthetic and other implants, materials and accessory cardiovascular devices associated with adverse incidents; Z95.0 Presence of cardiac pacemaker; Z79.899 Other long term (current) drug therapy; Z82.3 Family history of stroke; Z71.6 Tobacco abuse counseling
CPT/HCPCS: 33208; 33222; 36415; 70450; 71045; 71275; 80053; 80061; 81001; 83735; 84443; 84484; 85027; 85610; 93005; 93306; 93970; 96374; 99152; 99153; C1785; C1898; J0360; J0690; J1940; J2250; J2405; J3010; J3490; J7050; Q9967; J7030

== ENCOUNTER → 2018-04-22 | Outpatient (CLI) | payer MEDICARE ==
[2018-04-03 11:07] VITALS: BP 141/61
[~2018-04-22] MED LIST: AMLO10TA6 PO; ASPI-630 PO; ATOR10TA60 PO; LISI-334 PO; REGADENOSON 0.4 MG/5 ML DISP.SYRIN. IV ONE
--- NOTE | 2018-04-22 11:54 | RAD ---
MR#: [id number] Date of Study: 04/22/2018 Ordering Physician: MARIANNE GUZMAN Referring Physician: GODFREY FARAH Tech: RT Tomy Green) (N) APPROVED REPORT Test Type: Pharmacological Stress Nurse/Tech: Tricia Steinberg RN Test Indications: Sinus Bradycardia Cardiac History: Hypertension,smoker,pacemaker Medications: See Electronic Medical Record Medical History: See Electronic Medical Record Resting ECG: a-fib with occasional pacemaker spikes Resting Heart Rate: 67 bpm Resting Blood Pressure: 114/55mmHg Pretest Chest Pain: No chest pain Nurse/Tech Notes S1,S2--irregular rate. Lungs are clear to auscultation. Consent: The procedure was explained to the patient in lay terms. Informed consent was witnessed. Paddy eout was entered into [employer]. History and Stress Test performed by RT Tomy Green) (N) Pharm. Details Pharmacologic stress testing was performed using 0.4mg per 5ml of regadenoson given intravenously ove r 7-10 seconds. Stress Symptoms Nausea and vomiting (patient vomitted at the end of the study), stated she felt better after "throwin g up" POST EXERCISE Reason for Termination: Infusion complete Target HR: Yes Max HR: 182 bpm Max Blood Pressure: 116/60mmHg Blood Pressure response to exercise: Normal blood pressure response during stress. Heart Rate response to exercise: WNL Chest Pain: No. Arrhythmia: No. ST Change: Yes. INTERPRETATION Stress EKG Conclusion: Non-diagnostic EKG due to pacing artifact. Imaging Protocol IMAGE PROTOCOL: Rest Tc-99m/stress Tc-99m 1 day Rest: Stress: Viability: Radiopharm.Tc99m [id number] Sestamibi Yqlq84iUj 32mCi Duration 15min. 12min. Img Date 04/22/2018 04/22/2018 Inj-Img Zjap61ghs. 60min. Rest Admin Site:IV - Left HandAdministrator:RT Tomy Green)(N) Stress Admin Site: IV - Left HandAdministrator: RT Tomy Meyers)(N) STRESS DATA End Diast. Vol.52.0mlAv. Heart Rate68.0bpm End Syst. Vol.8.0mlCO Index BSA0.0L/min Myocardial Abhf564.0gEject. Kfagzxco07.0% Stress Rates Pk. Fill Rate3.15EDV/secLVtime Pk. Fill 247.50msec Pk. Empty Rate5.14ESV/secLVtime Pk. Jciwm649.28msec /3 Pk. Fill1.41EDV/sec Stress Scores Regional WT1.00Summed WT7.00 Regional WM0.00Summed WM1.00 The rest and stress images show normal perfusion, normal contraction and thickening. LV Perf. Quant 17 Seg. SSS0.00 17 Seg. SRS0.00 17 Seg. SDS0.00 Stress Defect Extent (% LAD)0.00Rest Defect Extent (% LAD)0.00Rev. Defect Extent (% LAD)0.00 Stress Defect Extent (% LCX) 0.00Rest Defect Extent (% LCX)5.00Rev. Defect Extent (% LCX)0.00 Stress Defect Extent (% RCA)0.00Rest Defect Extent (% RCA)0.00Rev. Defect Extent (% RCA)0.00 Stress Defect Extent (% KANDICE)0.00Rest Defect Extent (% KANDICE)0.90Rev. Defect Extent (% KANDICE)0.00 Other Information Quality:Good Risk Assessment: Low Risk Conclusion 1. Non-diagnostic EKG due to paced rhythm. 2. Normal perfusion at stress/rest. 3. Low risk study. 4. EF > 60%. Signed by : Chaparro Arriola, Electronically Approved : 04/22/2018 11:54:13
== END | disposition home or self-care (01) ==
LOC: NM 07:44
PROVIDERS: ATTEND Internal Medicine Cardiovascular Disease
DX: M79.89 Other specified soft tissue disorders (principal); R00.1 Bradycardia, unspecified; I10 Essential (primary) hypertension; Z79.01 Long term (current) use of anticoagulants; Z87.891 Personal history of nicotine dependence
CPT/HCPCS: 78452; 93017; 96374; 96375; 96376; A9500; J2785

== ENCOUNTER → 2019-07-15 | Outpatient (CLI) | payer MEDICARE ==
[~2019-07-15] MED LIST changes: -AMLO10TA6 PO; +AMLO10TA8 PO; -REGADENOSON 0.4 MG/5 ML DISP.SYRIN. IV ONE
--- NOTE | 2019-07-15 12:54 | CARD ---
MR#: [id number] Date of Study: 07/15/2019 Ordering Physician: MARIANNE PETERSON, Referring Physician: MARIANNE PETERSON, Tech: Camacho Leon RDCS APPROVED REPORT EXAM: Two-dimensional and M-mode echocardiogram with Doppler and color Doppler. Other Information Quality : AverageHR: 61bpm INDICATION SSS RISK FACTORS Hypertension Hyperlipidemia Smoking 2D DIMENSIONS RVDd3.1 (2.9-3.5cm)Left Atrium(2D)2.6 (1.6-4.0cm) IVSd1.1 (0.7-1.1cm)Aortic Root(2D)3.0 (2.0-3.7cm) LVDd3.1 (3.9-5.9cm)LVOT Diameter2.0 (1.8-2.4cm) PWd1.0 (0.7-1.1cm)LVDs2.3 (2.5-4.0cm) FS (%) 25.8 %SV19.7 ml LVEF(%)52.3 (>50%) Aortic Valve AoV Peak Dominic.151.5cm/Nirmal Peak GR.9.2mmHg LVOT Peak Dominic.100.2cm/sAVA (VMAX)1.98cm2 Mitral Valve MV E Zfcvqvqo16.8cm/sMV DECEL TWPZ317ml MV A Ctntxqvi32.2cm/sE/A Ratio0.8 MV A [id number] Pulmonary Valve PV Peak Ojzhvcnx83.6cm/s Tricuspid Valve TR P. Fwmlyufs345ja/sTR Peak Gr.22mmHg [id number] Pulmonary Vein S1 Glijolxw35.0cm/sD2 Zobxrkeq72.3cm/s PVa [id number] LEFT VENTRICLE The left ventricle is normal size. There is normal left ventricular wall thickness. The left ventricu lar systolic function is normal. The Ejection Fraction is 60-65%. There is normal LV segmental wall m otion. Transmitral Doppler flow pattern is Grade I-abnormal relaxation pattern. There is no ventricul ar septal defect visualized. RIGHT VENTRICLE The right ventricle is normal size. The right ventricular systolic function is normal. ATRIA The left atrium size is normal. The right atrium size is upper limits of normal. The interatrial sept um is intact with no evidence for an atrial septal defect or patent foramen ovale as noted on 2-D or Doppler imaging. AORTIC VALVE The aortic valve is mildly calcified but opens well. Doppler and Color Flow revealed mild aortic regu rgitation. There is no significant aortic valvular stenosis. MITRAL VALVE The mitral valve is normal in structure and function. There is no mitral valve stenosis. Doppler and Color-flow revealed trace mitral regurgitation. TRICUSPID VALVE The tricuspid valve is normal in structure and function. Doppler and Color Flow revealed mild to mode rate tricuspid regurgitation. PAP is estimated at 25 mmHg. There is no tricuspid valve stenosis. PULMONIC VALVE The pulmonic valve is not well visualized. Doppler and Color Flow revealed no pulmonic valvular regur gitation. There is no pulmonic valvular stenosis. GREAT VESSELS The aortic root is normal in size. The ascending aorta is normal in size. The IVC is normal in size a nd collapses >50% with inspiration. PERICARDIAL EFFUSION There is no pleural effusion. There is no evidence of significant pericardial effusion. Critical Notification Critical Value: No <Conclusion> The left ventricular systolic function is normal. The Ejection Fraction is 60-65%. There is normal LV segmental wall motion. Transmitral Doppler flow pattern is Grade I-abnormal relaxation pattern. Mild aortic regurgitation. Trace mitral regurgitation. Mild to moderate tricuspid regurgitation. PAP is estimated at 25 mmHg. There is no evidence of significant pericardial effusion. Signed by : Marianne Peterson, Electronically Approved : 07/15/2019 12:53:58
== END | disposition home or self-care (01) ==
LOC: ECHO 10:33
PROVIDERS: ATTEND Internal Medicine Cardiovascular Disease
DX: I08.2 Rheumatic disorders of both aortic and tricuspid valves (principal); I49.5 Sick sinus syndrome; I10 Essential (primary) hypertension; E78.5 Hyperlipidemia, unspecified; F17.200 Nicotine dependence, unspecified, uncomplicated
CPT/HCPCS: 93306